=== PATIENT | female | born 1955 | race Caucasian/White ===

== ENCOUNTER 2019-01-02 12:05 | Emergency (ER) | payer OTHER ==
[~2019-01-02] VITALS: Ht 147.3 cm; Wt 84.2 kg
[~2019-01-02 12:05] MED LIST: BABY ASPIRIN PO; BENAZEPRIL PO; CELEBREX PO; GLIPIZIDE PO; IBUPROFEN PO; JANUVIA PO; LOVASTATIN PO; METFORMIN PO; NORVASC PO
[2019-01-02 12:10] VITALS: Ht 147.3 cm; Wt 84.2 kg
[2019-01-02] MEDS ORDERED: KETOROLAC 15 MG INJ IV STA (12:42)
[2019-01-02] MEDS ORDERED: SOD CHLORIDE 0.9% 500 ML IV STA (12:42)
--- NOTE | 2019-01-02 13:25 | ERD ---
ER Documentation Chief Complaint Chief Complaint LEFT SIDE ABD PAIN X2 DAYS, NAUSEA, NO VOMITING HPI 63 yo F who presents to the ED with 2 days of left back and LLQ abdominal pain. Pain is mild, throbbing, starting in lower back and buttock, radiating to LLQ of the abdomen. Worse with walking and sitting in certain positions. No dysuria, urgency, frequency, hematuria noted. No fevers, chills, No nausea or vomiting, diarrhea or constipation. No prior history of ureteral stones or intra- abdominal surgeries. Translation services were utilized during this patient's encounter Language: Georgian Source: Family ROS All systems reviewed and are negative except as per history of present illness. Medications Home Meds Active Scripts Ibuprofen* (Motrin*) 800 Mg Tab, 800 MG PO Q6H PRN for PAIN AND OR ELEVATED TEMP, #30 TAB Take with food Prov:LEONIADS YOUNGBLOOD MD 01/02/19 Reported Medications [Baby Aspirin] No Conflict Check, PO 11/17/13 [Benazepril] No Conflict Check, PO 11/17/13 [Metformin] No Conflict Check, PO 11/17/13 [Celebrex] No Conflict Check, PO 11/17/13 [Norvasc] No Conflict Check, PO 11/17/13 [Januvia] No Conflict Check, PO 11/17/13 [Glipizide] No Conflict Check, PO 11/17/13 [Lovastatin] No Conflict Check, PO 11/17/13 [Ibuprofen] No Conflict Check, PO 11/17/13 Allergies Allergies: Coded Allergies: Penicillins (Unverified Allergy, Unknown, 11/17/13) PMhx/Soc History of Surgery: Yes (TUBAL LIGATION) Anesthesia Reaction: No Hx Neurological Disorder: No Hx Respiratory Disorders: No Hx Cardiac Disorders: Yes (HTN) Hx Psychiatric Problems: No Hx Miscellaneous Medical Probl: No Hx Alcohol Use: No Hx Substance Use: No Hx Tobacco Use: No Smoking Status: Never smoker FmHx Family History: No diabetes Physical Exam Vitals Vital Signs Date Temp Pulse Resp B/P (MAP) Pulse Ox O2 O2 Flow FiO2 Time Delivery Rate 01/02/19 97.9 90 17 170/86 98 12:10 (114) Physical Exam General: Well developed, well nourished, no acute distress Head: Normocephalic, atraumatic Eyes: Pupils equally reactive, EOM intact ENT: Moist mucous membranes Neck: Supple, no lymphadenopathy Respiratory: Lungs clear bilaterally, no distress Cardiovascular: RRR, no murmurs, rubs, or gallops Abdominal: Soft, very mild but somewhat inconsistent left lower quadrant abdominal tenderness, no peritonitis Back: No CVAT, no midline tenderness deformities or step-offs : Deferred MSK: No edema, no unilateral swelling, 5/5 strength Neurologic: Alert and oriented, moving all extremities, normal speech, no focal weakness, no cerebellar signs Skin: No rash Psych: Normal mood Result Diagram: 01/02/19 1249 01/02/19 1249 Results 24 hrs Laboratory Tests Test 01/02/19 12:45 01/02/19 12:49 Urine Color STRAW Urine Clarity CLEAR Urine pH 7.0 Urine Specific [place] 1.012 Urine Ketones NEGATIVE mg/dL Urine Nitrite NEGATIVE mg/dL Urine Bilirubin NEGATIVE mg/dL Urine Urobilinogen NEGATIVE mg/dL Urine Leukocyte Esterase NEGATIVE Karon/ul Urine Hemoglobin NEGATIVE mg/dL Urine Glucose 3+ mg/dL Urine Total Protein NEGATIVE mg/dl White Blood Count 9.0 10^3/ul Red Blood Count 5.20 10^6/ul Hemoglobin 15.0 g/dl Hematocrit 45.9 % Mean Corpuscular Volume 88.3 fl Mean Corpuscular Hemoglobin 28.8 pg Mean Corpuscular Hemoglobin Concent 32.7 g/dl Red Cell Distribution Width 13.4 % Platelet Count 226 10^3/UL Mean Platelet Volume 8.5 fl Immature Granulocytes % 0.300 % Neutrophils % 70.8 % Lymphocytes % 20.9 % Monocytes % 6.3 % Eosinophils % 1.3 % Basophils % 0.4 % Nucleated Red Blood Cells % 0.0 /100WBC Immature Granulocytes # 0.030 10^3/ul Neutrophils # 6.4 10^3/ul Lymphocytes # 1.9 10^3/ul Monocytes # 0.6 10^3/ul Eosinophils # 0.1 10^3/ul Basophils # 0.0 10^3/ul Nucleated Red Blood Cells # 0.0 10^3/ul Sodium Level 145 mmol/L Potassium Level 4.6 mmol/L Chloride Level 106 mmol/L Carbon Dioxide Level 27 mmol/L Anion Gap 12 Blood Urea Nitrogen 20 mg/dl Creatinine 0.96 mg/dl Est Glomerular Filtrat Rate mL/min 58 mL/min Glucose Level 206 mg/dl Calcium Level 10.1 mg/dl Total Bilirubin 0.4 mg/dl Direct Bilirubin 0.00 mg/dl Indirect Bilirubin 0.4 mg/dl Aspartate Amino Transf (AST/SGOT) 34 IU/L Alanine Aminotransferase (ALT/SGPT) 32 IU/L Alkaline Phosphatase 92 IU/L Total Protein 8.2 g/dl Albumin 4.5 g/dl Globulin 3.70 g/dl Albumin/Globulin Ratio 1.21 Lipase 154 U/L Current Medications Medications Dose Sig/Carlos Start Time Status Last (Trade) Ordered Route PRN Stop Time Admin Dose Reason Admin Sodium 500 ml @ Q1H STAT 01/02/19 DC 01/02/19 Chloride 500 mls/hr IV 12:42 01/02/19 12:54 13:41 Ketorolac 15 mg ONCE STAT 01/02/19 DC 01/02/19 Tromethamine IV 12:42 01/02/19 12:53 (Toradol) 12:43 Procedures/MDM EKG, MONITORS, & DIAGNOSTIC IMAGING: CT abdomen and pelvis IMPRESSION: No evidence of urolithiasis, obstructive uropathy or diverticulitis. Nonvisualization appendix. Vascular calcifications. Senescent degenerative changes lumbar spine.. LAB INTERPRETATION: I reviewed the laboratory testing and it shows no evidence of acute process MEDICAL DECISION MAKING: The patient presents with what appears to be more likely musculoskeletal versus radiculopathy type pain. The patient is describing pain starting from her buttock to the left lower quadrant abdomen. Patient otherwise has a mostly benign exam. There are no signs or symptoms concerning for CVAT, ureterolithiasis and pyelonephritis seem less likely. No signs or symptoms concerning for ovarian cyst or torsion. Patient would benefit from laboratory testing as well as CT imaging to rule out acute intra-abdominal process such as diverticulitis given the location of the pain. However if negative work-up this would be treated symptomatically for likely and presumed muscular skeletal etiology. Outpatient follow-up including PT OT, weight loss eventually MRI would be appropriate. ER COURSE: * The patient was given nonnarcotic pain medication. Symptoms improved. * The patient's laboratory testing and diagnostic imaging is unrevealing. This is reassuring. This again means this is most likely secondary to a lumbar radiculopathy versus musculoskeletal etiology. Outpatient therapy would be reasonable. Primary care for referral recommended to the patient. CONSULTATION: None DISPOSITION PLAN: The patient does not have an identifiable emergent medical condition that warrants inpatient hospitalization at this time. The patient is deemed safe for discharge with outpatient follow-up. We discussed follow up with the patient's primary care doctor within 24 to 48 hours as needed. We also discussed return to the emergency room for worsening symptoms or worsening condition. Outpatient referral: None required Discharge Medications: Motrin Departure Diagnosis: Primary Impression: Left flank pain Condition: Stable LEONIDAS YOUNGBLOOD MD Jan 02, 2019 13:25
[2019-01-02] MEDS ORDERED: IBUP800T48 PO (13:57)
[2019-01-02 14:06] VITALS: BP 114/91; PULSE 86; RESP 18
== END 2019-01-02 14:07 | disposition home or self-care (01) ==
LOC: E/R 12:05
DX: R10.32 Left lower quadrant pain (principal); I10 Essential (primary) hypertension; Z79.82 Long term (current) use of aspirin; Z79.84 Long term (current) use of oral hypoglycemic drugs
CPT/HCPCS: 36415; 74176; 80053; 81003; 83690; 85025; 96374; 99285; J1885; J7040